=== PATIENT | female | born 1975 ===

== ENCOUNTER 2019-04-29 20:18 | Emergency (ER) | payer SELFPAY ==
[2019-04-29 21:49] VITALS: BP 116/85
--- NOTE | 2019-04-29 21:50 | Event Note ---
ED Screening Note Date of service: 04/29/19 Time: 21:46 ED Screening Note: PATIENT REPORTS PAIN TO LOWER LIP STARTED ON AND REPORTS ABSCESS INSIDE LOWER LIP AN NOW RED AND SWOLLEN WITH FEELLING OF FEVER. REPORTS PAIN 10/10 AND HURTIND THROBBING. TYLENLOL DOES NOT HELP TOO MUCH. dENIES ANY SWELLING TO TONGUEM THROAT, NECK. DENIES DIFFICULTY IN BREATHING OR COUGHING. This initial assessment/diagnostic orders/clinical plan/treatment(s) is/are subject to change based on patients health status, clinical progression and re- assessment by fellow clinical providers in the ED. Further treatment and workup at subsequent clinical providers discretion. Patient/guardian urged not to elope from the ED as their condition may be serious if not clinically assessed and managed. Initial orders include: WILL BE MANAGED IN FAST TRACK
[2019-04-29] MEDS ORDERED: cephALEXin 500 MG CAP PO ONE (23:01)
[2019-04-29] MEDS ORDERED: IBUPROFEN 800 MG TAB PO ONE (23:01)
[2019-04-29] MEDS ORDERED: ONDANSETRON 4 MG ODT TAB PO ONE (23:01)
--- NOTE | 2019-04-29 23:11 | Emergency Department Report ---
ED General Adult HPI - General Chief complaint: Skin/Abscess/Foreign Body Stated complaint: POSS LIP INFECTION/PAIN Time Seen by Provider: 04/29/19 21:43 Source: patient, family Mode of arrival: Ambulatory Limitations: Language Barrier - History of Present Illness Initial comments: Patient is a 43-year-old female with no past medical history who presents to the ED with complaint of acute onset persistent severe painful swollen erythematous maculopapular rash on her lower lip for the last 6 days. Patient states that in the last 2 days the pain and swelling however was sent. Patient denies fever, chills, nausea, vomiting, dizziness or headache and chest pain or shortness of breath. MD Complaint: Lower lip swollen abscess -: Sudden, days(s) (6) Location: mouth (lower lip) Radiation: non-radiation Severity scale (0 -10): 6 Quality: aching, sharp Consistency: constant Improves with: none Worsens with: none Associated Symptoms: denies other symptoms. denies: confusion, chest pain, cough, diaphoresis, fever/chills, headaches, loss of appetite, malaise, nausea/vomiting, rash, shortness of breath, syncope, weakness Treatments Prior to Arrival: none - Related Data Previous Rx's Medication Instructions Recorded Last Taken Type Acetaminophen/Codeine [Tylenol 1 tab PO Q6H PRN #12 tab 04/29/19 Unknown Rx /Codeine # 3 tab] Ibuprofen [Motrin] 800 mg PO Q8HR PRN #24 tablet 04/29/19 Unknown Rx cephALEXin [Keflex] 500 mg PO Q6HR #40 capsule 04/29/19 Unknown Rx Allergies Allergy/AdvReac Type Severity Reaction Status Date / Time No Known Allergies Allergy Verified 04/29/19 20:37 ED Review of Systems ROS: Stated complaint: POSS LIP INFECTION/PAIN Other details as noted in HPI Constitutional: denies: chills, fever Eyes: denies: eye pain, eye discharge, vision change ENT: other (lower lip swelling, pain and erythematous rash). denies: ear pain, throat pain Respiratory: denies: cough, shortness of breath, wheezing Cardiovascular: denies: chest pain, palpitations Endocrine: no symptoms reported Gastrointestinal: denies: abdominal pain, nausea, diarrhea Genitourinary: denies: urgency, dysuria, discharge Musculoskeletal: denies: back pain, joint swelling, arthralgia Skin: rash (erythematous swollen nonfluctuant rash on lower lip), change in color. denies: lesions Neurological: denies: headache, weakness, paresthesias Psychiatric: denies: anxiety, depression Hematological/Lymphatic: denies: easy bleeding, easy bruising ED Past Medical Hx - Past Medical History Previous Medical History?: No - Surgical History Past Surgical History?: Yes Additional Surgical History: Tubal ligation - Social History Smoking Status: Never Smoker Substance Use Type: None - Medications Home Medications: Home Medications Medication Instructions Recorded Confirmed Last Taken Type Acetaminophen/Codeine [Tylenol 1 tab PO Q6H PRN #12 tab 04/29/19 Unknown Rx /Codeine # 3 tab] Ibuprofen [Motrin] 800 mg PO Q8HR PRN #24 tablet 04/29/19 Unknown Rx cephALEXin [Keflex] 500 mg PO Q6HR #40 capsule 04/29/19 Unknown Rx ED Physical Exam - General Limitations: Language Barrier General appearance: alert, in no apparent distress - Head Head exam: Present: atraumatic, normocephalic, normal inspection - Eye Eye exam: Present: normal appearance, PERRL, EOMI Pupils: Present: normal accommodation - ENT ENT exam: Present: normal exam, normal orophraynx, mucous membranes moist, TM's normal bilaterally, normal external ear exam, other (Swollen erythematous tender maculopapular nonfluctuant rash) - Neck Neck exam: Present: normal inspection, full ROM. Absent: tenderness, lymphadenopathy - Respiratory Respiratory exam: Present: normal lung sounds bilaterally. Absent: respiratory distress, wheezes, rales, chest wall tenderness, accessory muscle use, decreased breath sounds - Cardiovascular Cardiovascular Exam: Present: regular rate, normal rhythm, normal heart sounds. Absent: systolic murmur, diastolic murmur, rubs, gallop - GI/Abdominal GI/Abdominal exam: Present: soft, normal bowel sounds. Absent: tenderness, guarding, rebound, hyperactive bowel sounds, hypoactive bowel sounds, organomegaly - Extremities Exam Extremities exam: Present: normal inspection, full ROM, normal capillary refill - Back Exam Back exam: Present: normal inspection, full ROM - Neurological Exam Neurological exam: Present: alert, oriented X3, CN II-XII intact, normal gait, reflexes normal - Psychiatric Psychiatric exam: Present: normal affect, normal mood - Skin Skin exam: Present: warm, dry, intact, normal color, rash (Erythematous swollen maculopapular nonfluctuant rash on lower lip), erythema ED Course Vital Signs 04/29/19 21:44 Temperature 98.7 F Pulse Rate 96 H Respiratory 18 Rate Blood Pressure 116/85 O2 Sat by Pulse 100 Oximetry - Reevaluation(s) Reevaluation #1: 04/29/19 23:15 This is a 43-year-old female who presented to the ED with complaint of painful swollen erythematous micropapular nonfluctuant rash on her lower lip for 6 days. In the ED, patient is alert and oriented 3 and is not in distress. Patient was treated for pain and also given initial oral antibiotics in the ED, and discharged home on pain medications and antibiotics. Patient was advised to follow-up with her primary care physician in 7-10 days for reevaluation. Patient was also advised to return to the ED immediately if symptoms get worse. ED Medical Decision Making - Medical Decision Making This is a 43-year-old female who presented to the ED with complaint of painful swollen erythematous micropapular nonfluctuant rash on her lower lip for 6 days. In the ED, patient is alert and oriented 3 and is not in distress. Patient was treated for pain and also given initial oral antibiotics in the ED, and discharged home on pain medications and antibiotics. Patient was advised to follow-up with her primary care physician in 7-10 days for reevaluation. Patient was also advised to return to the ED immediately if symptoms get worse. - Differential Diagnosis acute folliculitis; lower lip cellulitis; facial cellulitis Critical care attestation.: If time is entered above; I have spent that time in minutes in the direct care of this critically ill patient, excluding procedure time. ED Disposition Clinical Impression: Abscess of lip, Cellulitis of skin of lip Disposition: DC- TO HOME OR SELFCARE Is pt being admited?: No Does the pt Need Aspirin: No Condition: Stable Instructions: Cellulitis (ED) Additional Instructions: [place] medicamentos con alimentos, alana muchos lquidos y charles un seguimiento con [place] mdico de atencin primaria en 7-10 collado para la reevaluacin. Regrese al servicio de urgencias de inmediato si los sntomas empeoran Prescriptions: cephALEXin [Keflex] 500 mg PO Q6HR #40 capsule Ibuprofen [Motrin] 800 mg PO Q8HR PRN #24 tablet PRN Reason: Pain , Severe (7-10) Acetaminophen/Codeine [Tylenol /Codeine # 3 tab] 1 tab PO Q6H PRN #12 tab PRN Reason: Pain , Severe (7-10) Referrals: [facility] [[facility]] - 7-10 days Time of Disposition: 23:07 Print Language: GERMAN
== END 2019-04-29 22:00 | disposition home or self-care (01) ==
LOC: ED 20:18
DX: K13.0 Diseases of lips (principal); Z98.51 Tubal ligation status; Z79.899 Other long term (current) drug therapy
CPT/HCPCS: 99282; Q0162

== ENCOUNTER 2020-01-14 22:55 | Emergency (ER) | payer SELFPAY ==
--- NOTE | 2020-01-14 23:21 | Emergency Department Report ---
ED ENT HPI - General Chief complaint: Dental/Oral Stated complaint: BOIL IN MONTH Time Seen by Provider: 01/14/20 23:17 Source: patient Mode of arrival: Ambulatory Limitations: No Limitations - History of Present Illness Initial comments: 44-year-old female presents emerged department complaining of a 3D 3- day history of right dental swelling with pain and what she says taste like a pus type discharge MD complaint: tooth pain -: days(s) (3) Severity: moderate Consistency: constant Improves with: none Worsens with: eating Context- Dental: history of dental caries Associated Symptoms: gum swelling. denies: pain with swallowing, sore throat, tinnitus - Related Data Previous Rx's Medication Instructions Recorded Last Taken Type Acetaminophen/Codeine [Tylenol 1 tab PO Q6H PRN #12 tab 04/29/19 Unknown Rx /Codeine # 3 tab] Ibuprofen [Motrin] 800 mg PO Q8HR PRN #24 tablet 04/29/19 Unknown Rx cephALEXin [Keflex] 500 mg PO Q6HR #40 capsule 04/29/19 Unknown Rx Amoxicillin [Amoxicillin TAB] 875 mg PO BID #20 tablet 01/14/20 Unknown Rx Chlorhexidine Mouthwash [Peridex] 15 ml MM BID #1 bottle 01/14/20 Unknown Rx Lidocaine Viscous 2% 5 ml MM Q3H PRN #120 udc 01/14/20 Unknown Rx Allergies Allergy/AdvReac Type Severity Reaction Status Date / Time No Known Allergies Allergy Verified 04/29/19 20:37 ED Dental HPI - General Chief complaint: Dental/Oral Stated complaint: BOIL IN MONTH Time Seen by Provider: 01/14/20 23:17 Source: patient Mode of arrival: Ambulatory Limitations: No Limitations - Related Data Previous Rx's Medication Instructions Recorded Last Taken Type Acetaminophen/Codeine [Tylenol 1 tab PO Q6H PRN #12 tab 04/29/19 Unknown Rx /Codeine # 3 tab] Ibuprofen [Motrin] 800 mg PO Q8HR PRN #24 tablet 04/29/19 Unknown Rx cephALEXin [Keflex] 500 mg PO Q6HR #40 capsule 04/29/19 Unknown Rx Amoxicillin [Amoxicillin TAB] 875 mg PO BID #20 tablet 01/14/20 Unknown Rx Chlorhexidine Mouthwash [Peridex] 15 ml MM BID #1 bottle 01/14/20 Unknown Rx Lidocaine Viscous 2% 5 ml MM Q3H PRN #120 udc 01/14/20 Unknown Rx Allergies Allergy/AdvReac Type Severity Reaction Status Date / Time No Known Allergies Allergy Verified 04/29/19 20:37 ED Review of Systems ROS: Stated complaint: BOIL IN MONTH Other details as noted in HPI Comment: All other systems reviewed and negative ED Past Medical Hx - Past Medical History Previous Medical History?: Yes Hx Diabetes: Yes Hx Liver Disease: Yes Hx Arthritis: Yes - Surgical History Past Surgical History?: Yes Additional Surgical History: x3 - Social History Smoking Status: Never Smoker Substance Use Type: None - Medications Home Medications: Home Medications Medication Instructions Recorded Confirmed Last Taken Type Acetaminophen/Codeine [Tylenol 1 tab PO Q6H PRN #12 tab 04/29/19 Unknown Rx /Codeine # 3 tab] Ibuprofen [Motrin] 800 mg PO Q8HR PRN #24 tablet 04/29/19 Unknown Rx cephALEXin [Keflex] 500 mg PO Q6HR #40 capsule 04/29/19 Unknown Rx Amoxicillin [Amoxicillin TAB] 875 mg PO BID #20 tablet 01/14/20 Unknown Rx Chlorhexidine Mouthwash [Peridex] 15 ml MM BID #1 bottle 01/14/20 Unknown Rx Lidocaine Viscous 2% 5 ml MM Q3H PRN #120 udc 01/14/20 Unknown Rx ED Physical Exam - General Limitations: No Limitations General appearance: alert, in no apparent distress - Head Head exam: Present: atraumatic, normocephalic - Eye Eye exam: Present: normal appearance - ENT ENT exam: Present: normal orophraynx (airway patent. ), mucous membranes moist, other (right upper gingival abscess with tenderness) - Neck Neck exam: Present: normal inspection - Respiratory Respiratory exam: Present: normal lung sounds bilaterally. Absent: respiratory distress - Cardiovascular Cardiovascular Exam: Present: regular rate, normal rhythm. Absent: systolic murmur, diastolic murmur, rubs, gallop - GI/Abdominal GI/Abdominal exam: Present: soft, normal bowel sounds - Extremities Exam Extremities exam: Present: normal inspection - Back Exam Back exam: Present: normal inspection - Neurological Exam Neurological exam: Present: alert, oriented X3 - Psychiatric Psychiatric exam: Present: normal affect, normal mood - Skin Skin exam: Present: warm, dry, intact, normal color. Absent: rash Critical care attestation.: If time is entered above; I have spent that time in minutes in the direct care of this critically ill patient, excluding procedure time. ED Disposition Clinical Impression: Dental abscess Disposition: DC- TO HOME OR SELFCARE Is pt being admited?: No Does the pt Need Aspirin: No Condition: Stable Instructions: Dental Abscess (ED) Prescriptions: Amoxicillin [Amoxicillin TAB] 875 mg PO BID #20 tablet Lidocaine Viscous 2% 5 ml MM Q3H PRN #120 udc PRN Reason: Pain, Moderate (4-6) Chlorhexidine Mouthwash [Peridex] 15 ml MM BID #1 bottle Referrals: [facility] [Outside] - 3-5 Days
[2020-01-14 23:41] VITALS: BP 132/88
== END 2020-01-14 23:44 | disposition home or self-care (01) ==
LOC: ED 22:55
DX: K04.7 Periapical abscess without sinus (principal); E11.9 Type 2 diabetes mellitus without complications; M19.91 Primary osteoarthritis, unspecified site; Z98.890 Other specified postprocedural states; Z79.1 Long term (current) use of non-steroidal anti-inflammatories (NSAID); Z79.2 Long term (current) use of antibiotics; Z79.899 Other long term (current) drug therapy
CPT/HCPCS: 99282